=== PATIENT | male | born 1965 | race Caucasian/White ===

== ENCOUNTER 2017-10-23 22:10 | Emergency (ER) | payer BC ==
[~2017-10-23] VITALS: Ht 172.7 cm; Wt 96.7 kg
[2017-10-23 22:33] LABS: HEMATOCRIT 47.1 % (38.0-50.0); HEMOGLOBIN 16.5 G/DL (12.5-16.6); MCH 33.9 PG (29.0-34.0); MCV 96.7 FL (86-99); PLATELET COUNT 166 K/uL (156-360); RBC DIS.WIDTH-CV 12.4 % (11.8-14.6); RBC DIS.WIDTH-SD 43.9 % (39-53); RED BLOOD COUNT 4.87 M/uL (4.00-5.50)
[2017-10-23 22:44] LABS: CHLORIDE 104 mEq/L (99-109); POTASSIUM 4.1 mEq/L (3.7-5.4); SODIUM 139 mEq/L (136-147)
[2017-10-23 22:46] LABS: GLUCOSE 140 mg/dL (70-99)
[2017-10-23 22:49] LABS: SERUM ETHYL ALCOHOL 187 mg/dL
[2017-10-23 22:50] LABS: CREATININE 0.9 mg/dL (0.6-1.3); GFR ESTIMATE (CALCULATED) > 59 mL/min/ (58.99-99999)
[2017-10-23 22:51] LABS: UREA NITROGEN (BUN) 11 mg/dL (9-23)
[2017-10-23 22:58] LABS: TROP-I INTERPRETATION NEGATIVE; TROPONIN-I < 0.01 ng/mL (0.0-0.30)
[2017-10-24 01:25] LABS: ALBUMIN 4.3 g/dL (3.2-4.8)
[2017-10-24 01:28] LABS: TOTAL PROTEIN 7.1 g/dL (6.4-8.3)
[2017-10-24 01:30] LABS: TOTAL BILIRUBIN 0.5 mg/dL (0.0-1.0)
[2017-10-24 01:31] LABS: ALKALINE PHOSPHATASE 74 IU/L (3-129)
[2017-10-24 01:33] LABS: AST (GOT) 57 IU/L (2-34); DIRECT BILIRUBIN 0.2 mg/dL (0.0-0.3)
[2017-10-24 01:34] LABS: ALT (GPT) 83 IU/L (3-49); LIPASE 30 U/L (1.0-51.0)
[2017-10-24 02:07] VITALS: BP 136/92
== END 2017-10-24 02:08 | disposition home or self-care (01) ==
LOC: EME 22:10
DX: R10.13 Epigastric pain (principal); F10.129 Alcohol abuse with intoxication, unspecified; E78.5 Hyperlipidemia, unspecified; I10 Essential (primary) hypertension; Y90.6 Blood alcohol level of 120-199 mg/100 ml
CPT/HCPCS: 71046; 80048; 80076; 83690; 84484; 85027; 93005; 99281; 99284; G0480